=== PATIENT | male | born 1965 | race Asian ===

== ENCOUNTER 2017-02-27 08:57 | Day surgery (SDC) | payer OTHER ==
[~2017-02-27] VITALS: Ht 160 cm; Wt 63.0 kg
[~2017-02-27 08:57] MED LIST: 0.9% Sodium Chloride 1,000 ML IV SCH; CETI10CA PO; ESOM40CA41 PO; Sodium Chloride LOK Flush 10 mL Syringe IV PRN; fentaNYL-PF 50 mCg/mL 2 mL Inj IVPUSH PRN
[2017-02-27 09:14] VITALS: BP 133/90; PULSE 74; RESP 16; O2SAT 98
[2017-02-27 10:05] VITALS: BP 99/70; PULSE 70; RESP 16; O2SAT 94
[2017-02-27 10:15] VITALS: BP 98/69; PULSE 76; RESP 12; O2SAT 99
[2017-02-27 10:25] VITALS: BP 101/70; PULSE 70; RESP 12; O2SAT 98
[2017-02-27 10:34] VITALS: BP 107/77; PULSE 70; RESP 14; O2SAT 98
[2017-02-27 10:46] VITALS: BP 112/85; PULSE 63; RESP 14; O2SAT 100
--- NOTE | 2017-02-27 13:50 | ENDO ---
[address] [address] ENDOSCOPY PROCEDURE PATIENT: CHRISTIANO OTOOLE : 1965 MR#: [id number] ADMIT: 02/27/2017 JOB ID: [id number] DATE: 02/27/2017 TYPE OF OPERATION: 1. Esophagogastroduodenoscopy with biopsy. 2. Colonoscopy. PREOPERATIVE DIAGNOSIS(ES): Gastroesophageal reflux disease, colorectal cancer. POSTOPERATIVE DIAGNOSIS(ES): 1. Normal upper endoscopy, status post biopsy. 2. Normal colonoscopy. ANESTHESIA: 1. Fentanyl 125 mcg. 2. Versed 7 mg IV administered. COMPLICATIONS: None. BLOOD LOSS: Minimal. DESCRIPTION OF PROCEDURE: After risks and benefits were explained to the patient, informed consent was obtained. After anesthesia administered, an upper endoscope was inserted into mouth intubating to the esophagus, stomach, second portion of duodenum. Mucosa carefully examined. After procedure was done, the scope withdrawn and procedure terminated. A colonoscope was then inserted from the rectum to cecum. Mucosa carefully examined. Prep of the patient was excellent. After the procedure was done, the scope withdrawn and procedure terminated. FINDINGS: Upon inspection of the esophagus, the esophagus appeared normal without masses, ulcers or lesions. Z-line located at 40 cm from incisors. Upon entering the stomach, the stomach was also normal without masses, ulcers, or lesions. Retroflexion was normal. Duodenal bulb, first and second portion normal. Biopsies taken from antrum and body of the stomach and distal esophagus. Upon inspection of the anus, no masses, hemorrhoids, ulcers, fissures that were seen. Throughout the entire examination, no polyps, masses, lesions. Retroflexion normal. IMPRESSIONS: 1. Normal upper endoscopy, status post biopsy. 2. Normal colonoscopy. RECOMMENDATIONS: 1. Await pathology results. 2. Repeat colonoscopy 10 years for colorectal cancer screening. 3. Followup in GI clinic as needed.
--- NOTE | 2017-03-02 14:54 | PATH ---
SURGICAL PATHOLOGY Attending Physician:Floyd Ceron MD CASE STATUS: Signed Out PATIENT NAME: CHRISTIANO OTOOLE PID: [id number] : 1965 DATE COLLECTED:02/27/2017 20:13 SPECIMEN: 1: Stomach, Antrum, Biopsy 2: Gastric, Biopsy 3: Esophagus, Biopsy CLINICAL HISTORY: 1). ANTRUM BIOPSY 2). GASTRIC BODY BIOPSY 3). DISTAL ESOPHAGUS BIOPSY FINAL DIAGNOSIS: 1. Antrum Biopsy: Mild chronic gastritis involving antral mucosa. Negative for evidence of Helicobacter. Negative for intestinal metaplasia. Negative for dysplasia and malignancy. 2. Gastric Body Biopsy: Minimal chronic gastritis involving fundic mucosa. Negative for evidence of Helicobacter. Negative for intestinal metaplasia. Negative for dysplasia and malignancy. 3. Distal Esophagus Biopsy: Fragments of squamous epithelium, negative for atypia and malignancy. No gastric-type epithelium present. Eosinophils are not increased. ICD10 K29.70 GROSS DESCRIPTION: The specimen is received in three formalin filled containers labeled with the patient's name. 1). The specimen is sublabeled "antrum" and consists of 2 portions of tissue which aggregate to 0.4 x 0.3 x 0.2 CM. The specimen is entirely submitted in cassette 1A. 2). The specimen is sublabeled "gastric body" and consists of 2 portions of tissue which aggregate to 0.3 x 0.3 x 0.2 CM. The specimen is entirely submitted in cassette 2A. 3). The specimen is sublabeled "distal esophagus" and consists of 2 tiny portions of tissue which aggregate to 0.3 x 0.2 x 0.2 CM. The specimen is entirely submitted in cassette 3A. 02/28/2017 [facility] ICD-9 CODES: CPT CODES: 1: 28445 2: 26417 3: 80696 Electronically Signed Out Abdoul Francois MD [facility] Pathology [facility] [address] [facility] [place] [address] Technical component performed at [facility], [facility] [address], [place], [address]
== END 2017-02-27 23:59 | disposition home or self-care (01) ==
LOC: END 08:57
PROVIDERS: ATTEND Internal Medicine Gastroenterology
DX: Z12.11 Encounter for screening for malignant neoplasm of colon (principal); K21.9 Gastro-esophageal reflux disease without esophagitis; K57.30 Diverticulosis of large intestine without perforation or abscess without bleeding; Z79.899 Other long term (current) drug therapy
CPT/HCPCS: 43239; 99153; G0121; G0500; J7030